=== PATIENT | male | born 1955 | race Caucasian/White ===

== ENCOUNTER → 2017-12-16 09:27 | Outpatient (CLI) | payer OTHER, SELFPAY ==
[2017-12-16 12:50] LABS: AST(SGOT) 43 U/L (15-37); Alanine Aminotransfer ALT/SGPT 51 U/L (16-61); Anion Gap 8 (5-15); BUN 11 mg/dL (7-18); BUN/Creat Ratio 10.1 RATIO (10-20); Calcium,Total 8.8 mg/dL (8.5-10.1); Chloride 104 mmol/L (98-107); Cholesterol 191 mg/dL (200); Creatinine, Serum 1.09 mg/dL (0.70-1.30); EST Glomerular Filtration Rate 73 mL/min (>60); Est Glom Filt Rate - Afr Amer 89 mL/min (>60); Glucose 101 mg/dL (74-106); High Density Lipoprotein 78 mg/dL; Sodium Level 136 mmol/L (136-145); Triglycerides 201 mg/dL; Very Low Density Lipoprotein 40 mg/dL (5-40)
== END ==
PROVIDERS: Family Provider Family Medicine; PCP Family Medicine; Visit Provider Family Medicine
DX: I10 Essential (primary) hypertension (principal); E78.00 Pure hypercholesterolemia, unspecified
CPT/HCPCS: 36415; 80048; 80061; 84450; 84460

== ENCOUNTER → 2018-01-15 16:03 | Outpatient (CLI) | payer OTHER, SELFPAY ==
--- NOTE | 2018-01-15 16:09 | RAD_ITS ---
STUDY: X-RAY - LUMBAR SPINE REASON FOR EXAM: Male, 62 years old. Strain. TECHNIQUE: 5 view(s) of the lumbar spine were obtained. COMPARISON: None FINDINGS: Normal lumbar lordosis. Minimal levoconvex scoliosis. There is a normal alignment of the vertebrae. There is multilevel endplate spondylosis of the lumbar vertebrae. There is multi-level degenerative disc disease with multi-level disc space narrowing. There is no demonstrated fracture. The soft tissue structures are unremarkable. RAD/L/S Spine Min 4 Views IMPRESSION: No acute abnormality. Psva-fq-tnnovuel multilevel degenerative changes. Electronically Signed: Pawel Trujillo MD at 0:01 EST , Service support ,
== END ==
PROVIDERS: Family Provider Family Medicine; PCP Family Medicine; Referring Provider Family Medicine; Visit Provider Family Medicine
DX: S76.019A Strain of muscle, fascia and tendon of unspecified hip, initial encounter (principal); X58.XXXA Exposure to other specified factors, initial encounter; Y93.9 Activity, unspecified; Y92.9 Unspecified place or not applicable; Y99.9 Unspecified external cause status
CPT/HCPCS: 72110

== ENCOUNTER 2018-02-23 09:00 | Outpatient (RCR) | payer OTHER, SELFPAY ==
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
--- NOTE | 2018-02-23 09:47 | HP.PTDCSUM ---
HP - PT D/C Summary It has been my pleasure to treat CLARA PENA under orders from Vera Hurst MD, for the diagnosis of GLUTEUS STRAIN for a total of 11 visit(s). Discharge Date: 02/23/18 Please see the following information for a summary of their discharge status. - Subjective Subjective: PATIENT DENIES PAIN, NUMBNESS OR TINGLING. REPORTS HE REALLY HASN'T BEEN FEELING MUCH. STATES HE HAS BEEN DOING HIS HOME EX'S AND FEELS READY TO STOP COMING. - Pain LEFT LOW BACK Pain Intensity (Out of 10): 0 - Overall Improvement % Improvement: 97 - Objective Objective/Function: ALL GOALS MET. PATIENT IS READY FOR DISCHARGE SOONER THAN EXPECTED. WHEN HE FIRST CAME, HE COULD NOT TOLERATED SITTING NORMALLY EVEN FOR A FEW MINUTES, STANDING MORE THAN A FEW MINUTES OR WALKING MORE THAN A FEW MINUTES. SITTING, STANDING AND WALKING ARE NOW UNLIMITED BUT HE HE DOES STILL REPORT MINOR SX'S AT TIMES. UPON EXAM TODAY HE AMBULATES INDEP'LY INTO PT WITH NO GROSS DEVICATIONS NOTED. JOYCE LE STRENGTH AND ROM ARE WFL AND TESTING DOES NOT PROVOKE PAIN. JOYCE LE DURAL SIGNS ARE NEGATIVE. LUMBAR MVMT LOSS: FLEX - NIL, EXT - MIN, JOYCE SG - MIN. PATIENT DENIES SX'S WITH LUMBAR ROM TESTING ALL PLANES. HE IS INDEP WITH A HEP. LUMBAR OSWESTRY HAS IMPROVED FROM 16 TO 0. - Goals Goal 1:: DECREASE C/O LEFT LOW BACK PAIN Goal Progress: Goal Met Goal 2:: IMPROVE STANDING, WALKING AND WORK FUNCTION Goal Progress: Goal Met Goal 3:: INSTRUCT IN PROPHYLAXIS Goal Progress: Goal Met - Plan Plan: D/C TO HEP. PATIENT AGREEABLE. - D/C Information If there are questions or concerns regarding this patient's physical therapy, please feel free to call me at [phone]. Thank you for the referral of this patient. Sincerely, Ekta Rosa, PT, Cert MDT
== END 2018-02-23 19:00 | disposition home or self-care (01) ==
LOC: PT 09:00
PROVIDERS: Family Provider Family Medicine; PCP Family Medicine; Referring Provider Family Medicine; Visit Provider Family Medicine
DX: S76.319D Strain of muscle, fascia and tendon of the posterior muscle group at thigh level, unspecified thigh, subsequent encounter (principal)
CPT/HCPCS: 97014; 97035; 97110; 97140; 97162; 97530; G0283

== ENCOUNTER → 2018-12-15 09:43 | Outpatient (CLI) | payer OTHER, SELFPAY ==
[2018-12-15 12:53] LABS: AST(SGOT) 51 U/L (15-37); Alanine Aminotransfer ALT/SGPT 62 U/L (16-61); Anion Gap 11 (5-15); BUN 11 mg/dL (7-18); BUN/Creat Ratio 9.8 RATIO (10-20); Calcium,Total 8.8 mg/dL (8.5-10.1); Chloride 103 mmol/L (98-107); Cholesterol 180 mg/dL (200); Creatinine, Serum 1.12 mg/dL (0.70-1.30); EST Glomerular Filtration Rate 71 mL/min (>60); Est Glom Filt Rate - Afr Amer 86 mL/min (>60); Glucose 98 mg/dL (74-106); High Density Lipoprotein 73 mg/dL; Potassium 4.5 mmol/L (3.5-5.1); Sodium Level 140 mmol/L (136-145); Triglycerides 237 mg/dL; Very Low Density Lipoprotein 47 mg/dL (5-40)
== END ==
PROVIDERS: Family Provider Family Medicine; PCP Family Medicine; Referring Provider Family Medicine; Visit Provider Family Medicine
DX: I10 Essential (primary) hypertension (principal); E78.00 Pure hypercholesterolemia, unspecified
CPT/HCPCS: 36415; 80048; 80061; 84450; 84460

== ENCOUNTER 2019-07-25 05:28 | Day surgery (SDC) | payer OTHER, SELFPAY ==
[2019-07-14 07:41] VITALS: BMI 23.6
--- NOTE | 2019-07-14 07:57 | HP_ITS ---
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 Óscar Avalos MD) Gastroesophageal reflux disease (Acute) GERD (gastroesophageal reflux disease) (Acute) Hyperlipidemia (Acute) HTN (hypertension) (Chronic) Surgical History (Updated 07/14/19 @ 07:40 by Dianna Solis) History of arthroscopic knee surgery (Acute) History of esophagogastroduodenoscopy (EGD) (Acute) History of mandibular surgery (Acute) Family History (Updated 07/14/19 @ 07:40 by Dianna Solis) Grandfather Myocardial infarction Heart disease Grandmother Cancer lung Social History (Updated 07/14/19 @ 07:[address] Óscar Avalos MD) Smoking Status: Never smoker HPI HPI HPI: CLARA PENA, is a 63 M who presents to the office today for HPI HPI Surgical H&P: Yes HPI: CLARA PENA, is a 63 M who presents to the office today for surgical consultation regarding a positive Cologuard test. The patient is referred by his primary care is Dr. Vera Hurst and a written copy my surgical consult recommendations will return to her. It is of additional note that the patient has been on a proton pump inhibitor omeprazole for over 10 years. He has not had any updated investigation regarding that currently. He denies bright red blood per rectum or melena. No abdominal pain. No weight loss. He otherwise feels like he is in good health. Does have hyperlipidemia and hypertension. ROS General General: No weight change, appetite, fatigue, colon cancer, breast cancer or weakness HEENT HEENT: No difficulty swallowing, eye injury, eye surgery, swollen glands or hoarseness Endo Endocrine: No thyroid disease, diabetes mellitus, thyroid cancer, Hair loss, heat intolerance or cold intolerance Musc Musculoskeletal: Yes arthritis; no back problems, rheumatoid arthritis, gout or joint pain Cardio Cardiovascular: Yes high blood pressure; no murmur, pacemaker, heart disease, atrial fibrillation, heart attack, heart stent, palpitations, shortness of breat with exertion or chest pain Psych Psychiatric: No depression, anxiety or hearing voices Resp Respiratory: No shortness of breath, No sleep apnea, No cough, No COPD, No asthma, No emphysema, No wheezing Gastro Gastrointestinal: No abdominal pain, No nausea or vomiting, No diarrhea, No constipation, No blood in stool, Yes acid reflux, No hemorrhoids, No ulcers, No gallbladder problem, No black,tarry stools Cesar Hematologic: No blood thinners, No blood disorders, No bleeding, No anemia, No blood clots Neuro Neurologic: No weakness Exam Const General: cooperative, healthy appearing, no acute distress, well developed Nutritional Appearance: average body habitus Orientation: alert, awake [facility] Head: normal to inspection Eyes General: appearance normal, both eyes and all related structures Neck Neck: normal visual inspection Chest Chest palpation & inspection: normal inspection of the chest Resp Effort & Inspection: normal respiratory effort Auscultation: clear to auscultation bilaterally Cardio Rate: regular rate Rhythm: regular rhythm Heart Sounds: no murmurs GI Palpation: soft, no hepatosplenomegaly Auscultation: normal bowel sounds Musc Cervical Spine: normal cervical lordosis Skin General: no rashes or lesions noted Neuro Cognition: normal cognition Extrem General: calf tenderness Psych Affect: normal affect Assessment & Plan Problems 1. Positive colorectal cancer screening using Cologuard test R19.5 2. Gastroesophageal reflux disease, esophagitis presence not specified K21.9 Plan Positive Cologuard with no previous history of colonoscopy. No family history. I recommend a colonoscopy with possible biopsy or polypectomy as indicated. The patient has been on long-term proton pump inhibitor therapy omeprazole for 10 years for treatment of GERD. I recommend a esophagogastroduodenoscopy with possible biopsy or polypectomy as indicated. He has had an opportunity to ask and have questions answered. He is aware that restrictions are elective procedures have just been lifted in the state of [place] regarding the Covid-19 pandemic. We will schedule and proceed at his discretion. I anticipate using monitored anesthesia care at this time.. I appreciate the opportunity of assisting with surgical care Cc: Dr. Vera Avalos M.D., F.A.C.S. Orders Orders: Colonoscopy Today Coding Level of Care Code 90621 Diagnoses Positive colorectal cancer screening using Cologuard test R19.5 Gastroesophageal reflux disease, esophagitis presence not specified K21.9 ??Esophagitis presence: esophagitis presence not specified 07/14/19 0758 <Electronically signed by Óscar raygoza MD> Date _ Óscar Avlaos MD
--- NOTE | 2019-07-25 05:42 | PCM.HP.BLA ---
Problem List (1) Gastroesophageal reflux disease Status: Acute Qualifiers: (2) Positive colorectal cancer screening using Cologuard test Status: Acute History and Physical Date of Admission: 07/25/19 Intake Visit Reasons: C-Scope Consult/+ Cologuard Chief Complaint: positive cologuard Alterations Sewer Required: No Is patient in pain?: No Allergies No Known Allergies Allergy (Verified 07/14/19 07:41) Medications amlodipine 10 mg tablet PO 07/14/19 [History Confirmed 07/14/19] atorvastatin 20 mg tablet PO 07/14/19 [History Confirmed 07/14/19] lansoprazole 30 mg capsule,delayed release ea PO 07/14/19 [History Confirmed 07/14/19] lisinopril 20 mg tablet PO 07/14/19 [History Confirmed 07/14/19] [facility] Medical History (Updated 07/14/19 @ 07:[address] Óscar Avalos MD) Gastroesophageal reflux disease (Acute) GERD (gastroesophageal reflux disease) (Acute) Hyperlipidemia (Acute) HTN (hypertension) (Chronic) Surgical History (Updated 07/14/19 @ 07:40 by Dianna Solis) History of arthroscopic knee surgery (Acute) History of esophagogastroduodenoscopy (EGD) (Acute) History of mandibular surgery (Acute) Family History (Updated 07/14/19 @ 07:40 by Dianna Solis) Grandfather Myocardial infarction Heart disease Grandmother Cancer lung Social History (Updated 07/14/19 @ 07:[address] Óscar Avalos MD) Smoking Status: Never smoker HPI HPI HPI: CLARA PENA, is a 63 M who presents to the office today for HPI HPI Surgical H&P: Yes HPI: CLARA PENA, is a 63 M who presents to the office today for surgical consultation regarding a positive Cologuard test. The patient is referred by his primary care is Dr. Vera Hurst and a written copy my surgical consult recommendations will return to her. It is of additional note that the patient has been on a proton pump inhibitor omeprazole for over 10 years. He has not had any updated investigation regarding that currently. He denies bright red blood per rectum or melena. No abdominal pain. No weight loss. He otherwise feels like he is in good health. Does have hyperlipidemia and hypertension. ROS General General: No weight change, appetite, fatigue, colon cancer, breast cancer or weakness HEENT HEENT: No difficulty swallowing, eye injury, eye surgery, swollen glands or hoarseness Endo Endocrine: No thyroid disease, diabetes mellitus, thyroid cancer, Hair loss, heat intolerance or cold intolerance Musc Musculoskeletal: Yes arthritis; no back problems, rheumatoid arthritis, gout or joint pain Cardio Cardiovascular: Yes high blood pressure; no murmur, pacemaker, heart disease, atrial fibrillation, heart attack, heart stent, palpitations, shortness of breat with exertion or chest pain Psych Psychiatric: No depression, anxiety or hearing voices Resp Respiratory: No shortness of breath, No sleep apnea, No cough, No COPD, No asthma, No emphysema, No wheezing Gastro Gastrointestinal: No abdominal pain, No nausea or vomiting, No diarrhea, No constipation, No blood in stool, Yes acid reflux, No hemorrhoids, No ulcers, No gallbladder problem, No black,tarry stools Cesar Hematologic: No blood thinners, No blood disorders, No bleeding, No anemia, No blood clots Neuro Neurologic: No weakness Exam Const General: cooperative, healthy appearing, no acute distress, well developed Nutritional Appearance: average body habitus Orientation: alert, awake [facility] Head: normal to inspection Eyes General: appearance normal, both eyes and all related structures Neck Neck: normal visual inspection Chest Chest palpation & inspection: normal inspection of the chest Resp Effort & Inspection: normal respiratory effort Auscultation: clear to auscultation bilaterally Cardio Rate: regular rate Rhythm: regular rhythm Heart Sounds: no murmurs GI Palpation: soft, no hepatosplenomegaly Auscultation: normal bowel sounds Musc Cervical Spine: normal cervical lordosis Skin General: no rashes or lesions noted Neuro Cognition: normal cognition Extrem General: calf tenderness Psych Affect: normal affect Assessment & Plan Problems 1. Positive colorectal cancer screening using Cologuard test R19.5 2. Gastroesophageal reflux disease, esophagitis presence not specified K21.9 Plan Positive Cologuard with no previous history of colonoscopy. No family history. I recommend a colonoscopy with possible biopsy or polypectomy as indicated. The patient has been on long-term proton pump inhibitor therapy omeprazole for 10 years for treatment of GERD. I recommend a esophagogastroduodenoscopy with possible biopsy or polypectomy as indicated. He has had an opportunity to ask and have questions answered. He is aware that restrictions are elective procedures have just been lifted in the state [facility] regarding the Covid-19 pandemic. We will schedule and proceed at his discretion. I anticipate using monitored anesthesia care at this time.. He is aware that [facility] administration has suggested a low incidence of coronavirus locally I appreciate the opportunity of assisting with surgical care Cc: Dr. Vera Avalos M.D., F.A.C.S. Orders Orders: Colonoscopy Today Coding Level of Care Code 86091 Diagnoses Positive colorectal cancer screening using Cologuard test R19.5 Gastroesophageal reflux disease, esophagitis presence not specified K21.9 ??Esophagitis presence: esophagitis presence not specified I have re-examined the patient. There are no clinical changes since date of exam.
[2019-07-25 05:50] VITALS: BP 111/80; PULSE 99; RESP 16; TEMP 37.2; O2SAT 95; BMI 22.4
[2019-07-25] MEDS: Lactated Ringers 1,000 ML 100 ML IV (06:07)
--- NOTE | 2019-07-25 06:30 | EGD_PTH ---
PATIENT: CLARA PENA LOC: EN U#:[id number] AGE/SX: 63/M ROOM: RE07/25/[address]: Dr. Óscar Avalos MD : 1955 BED: DIS: 07/25/2019 SPEC #: [id number] RECD: 07/25/19 13:30 STATUS: ARIS KENY #: [id number] DEANDRA: 07/25/19 06:[address]: Óscar Avalos DEPT: SURGICAL PATHOLOGY RECD BY: Nima Garcai ENTERED: 07/26/19 09:22 SP TYPE: EGD BIOPSY OT DR: Dr. Vera Hurst MD Tissues: A - Gastric mucous membrane B - Gastric mucous membrane C - Stomach, NOS D - Stomach, NOS E - Gastric mucous membrane Procedures: Special Stain Group II Surgery Specimen Level IV Alcian Blue/PAS (control) HEADER OPERATION: Colonoscopy, EGD ([facility]) PRE-OP DIAGNOSIS: GERD, positive Cologuard test TISSUE SUBMITTED: A - Antrum biopsy for histo and H. pylori, B - Antrum polyp biopsy, C - Lesser curvature polyp, D - Proximal cardia polyp, E - EG junction distal esophagus biopsy MICROSCOPIC DIAGNOSIS A. Antrum biopsy: Mild gastritis. See microscopic description and comment. B. Antrum polyp, biopsy: Hyperplastic/inflammatory polyp. C. Lesser curvature polyp, biopsy: Fragments of hyperplastic/inflammatory polyp. D. Proximal cardia polyp, biopsy: Fragments of hyperplastic/inflammatory polyp with focal ulceration and associated inflammation. E. EG junction, distal esophagus, biopsy: Fragments of gastroesophageal mucosa with focal intestinal metaplasia (goblet cell metaplasia), consistent with [place]'s esophagus. Moderate chronic inflammation. Negative for dysplasia. See comment. SJ:galileo 07/27/19 COMMENT A. The results of immunohistochemistry for Helicobacter pylori will be reported separately ([id number]). E. Alcian blue/PAS stain with matched control is used in the evaluation of the specimen. Case has been reviewed in consultation with Dr. Mendoza who concurs with the above diagnosis. IDC:AM MICROSCOPIC DESCRIPTION Slides are reviewed. A. The specimen shows fragments of gastric mucosa with chronic inflammatory cell infiltrates in the lamina propria consisting of lymphocytes and plasma cells, consistent with mild chronic gastritis. GROSS DESCRIPTION A - Received in fixative is one container labeled with the patient's name and designated antrum biopsy. The specimen consists of one irregular fragment of light bahena soft tissue that measures 0.3 x 0.3 x 0.1 cm. The specimen is totally submitted in one cassette. B - Received in fixative is one container labeled with the patient's name and designated antrum polyp biopsy. The specimen consists of one irregular fragment of light bahena soft tissue that measures 0.4 x 0.3 x 0.1 cm. The specimen is totally submitted in one cassette. C - Received in fixative is one container labeled with the patient's name and designated lesser curvature polyp. The specimen consists of two irregular fragments of light bahena soft tissue measuring 1 x 1 x 0.3 cm and 0.3 x 0.1 x 0.1 cm. The specimen is totally submitted in one cassette. D - Received in fixative is one container labeled with the patient's name and designated proximal cardia polyp. The specimen consists of two polypoid fragments of bahena-pink soft tissue measuring 2 x 1 x 1.2 and 1.5 x 1 x 0.1 cm. Also present in the container are multiple fragments of bahena-soft tissue measuring in aggregate 1.5 x 0.5 x 0.2 cm. The two pieces are serially sectioned. The entire specimen is submitted in three cassettes as follows: 1 - largest polypoid piece, 2 - second largest polypoid piece, 3 - smaller fragment. E - Received in fixative is one container labeled with the patient's name and designated EG junction. The specimen consists of multiple irregular fragments of light bahena soft tissue that in aggregate measure 2 x 0.3 x 0.1 cm. The specimen is totally submitted in one cassette. / SJ:rg 06/26/19 TC:[address] [facility]: [id number] x5, [id number]
--- NOTE | 2019-07-25 06:30 | IMM_PTH ---
PATIENT: CLARA PENA LOC: EN U#:[id number] AGE/SX: 63/M ROOM: RE07/25/[address]: Dr. Óscar Avalos MD : 1955 BED: DIS: 07/25/2019 SPEC #: [id number] RECD: 07/26/19 11:15 STATUS: ARIS REQ #: [id number] DEANDRA: 07/25/19 06:[address]: Óscar Avalos DEPT: IMMUNOHISTOCHEMISTRY RECD BY: Shirlene Berrios ENTERED: 07/26/19 11:16 SP TYPE: IMMUNO OTHR DR: Dr. Vera Hurst MD Tissues: A - Stomach, NOS Procedures: H Pylori (initial) PHYSICIAN & INSTITUTION [place] [address] SPECIMEN INFORMATION: Tissue Source: A - Antrum biopsy Clinical Info: GERD, positive Cologuard test Specimen Number: [id number] CPT code: 60355 METHODOLOGY: Deparaffinized sections of prefer/formalin-fixed tissue or PAP/DQ stained slides are incubated with monoclonal/polyclonal antibodies/oligonucleotide probes. Localization is made via biotin free immunoperoxidase method. Appropriate controls are performed and reacted as expected. Results on target cell population are indicated in the following table: RESULTS: ANTIBODY / CLONE RESULT Block A H Pylori (polyclonal) negative These tests were developed and their performance characteristics determined by [facility]. They may not have been cleared or approved by the U.S. Food and Drug Administration. The FDA has determined that such clearance or approval is not necessary. INTERPRETATION: A. Antrum, biopsy: Negative for Helicobacter pylori organisms. SJ:galileo 07/27/19
[2019-07-25 07:28] VITALS: BP 111/80; BP 122/77; PULSE 72; RESP 14; TEMP 36.3; O2SAT 100
[2019-07-25 07:35] VITALS: BP 111/80; BP 123/72; PULSE 69; RESP 14; O2SAT 100
--- NOTE | 2019-07-25 07:37 | OP.CCLET_ITS ---
07/25/2019 Vera Hurst [address] [place] [address] Re : Upper GI endoscopy procedure for Travis Scruggs Dear Dr. Hurst This procedure was performed on Thursday, July 25, 2019. My impressions and recommendations are as follows: Impressions : - Medium-sized hiatal hernia. - Z-line irregular, 42 cm from the incisors. Biopsied. - Esophageal mucosal changes suspicious for Espana's esophagus. Biopsied. - Multiple gastric polyps. Resected and retrieved. Lesser curvature polyps snare resected and retrieved - Two gastric polyps at cardia. Resected and retrieved. Clips were placed. - Normal examined duodenum. - Erythematous mucosa in the antrum. Biopsied. Recommendations : - Discharge patient to home. - Resume previous diet. - Continue present medications. - Return to my office in 1 week. My findings are described in the full procedure note, which is enclosed. If I can be of further assistance, please feel free to contact me at Doctor phone number(s): Work: . Sincerely, Óscar Avalos MD 07/25/2019 7:36:58 AM This report has been signed electronically.
--- NOTE | 2019-07-25 07:37 | OP.EGD_ITS ---
Patient Name: Travis Scruggs Procedure Date: 07/25/2019 6:09 AM Date of : 1955 Age: 63 Procedure: Upper GI endoscopy Indications: Cologuard positive Providers: Óscar Avalos MD Referring MD: Vera Hurst Medicines: See the Anesthesia note for documentation of the administered medications Complications: No immediate complications. Procedure: Pre-Anesthesia Assessment: - Prior to the procedure, a History and Physical was performed, and patient medications and allergies were reviewed. The patient's tolerance of previous anesthesia was also reviewed. The risks and benefits of the procedure and the sedation options and risks were discussed with the patient. All questions were answered, and informed consent was obtained. Prior Anticoagulants: The patient has taken no previous anticoagulant or antiplatelet agents. ASA Grade Assessment: II - A patient with mild systemic disease. After reviewing the risks and benefits, the patient was deemed in satisfactory condition to undergo the procedure. After obtaining informed consent, the endoscope was passed under direct vision. Throughout the procedure, the patient's blood pressure, pulse, and oxygen saturations were monitored continuously. The gastroscope was introduced through the mouth, and advanced to the second part of duodenum. The upper GI endoscopy was performed with moderate difficulty due to abnormal anatomy. The patient tolerated the procedure well. Scope In: 6:38:40 AM Scope Out: 7:03:25 AM Total Procedure Duration Time 0 hours 24 minutes 45 seconds Findings: A medium-sized hiatal hernia was present. The Z-line was irregular and was found 42 cm from the incisors. Biopsies were taken with a cold forceps for histology. There were esophageal mucosal changes suspicious for Espana's esophagus present at the gastroesophageal junction. The maximum longitudinal extent of these mucosal changes was 1 cm in length. Mucosa was biopsied with a cold forceps for histology. Multiple sessile polyps with no bleeding and no stigmata of recent bleeding were found in the stomach. The polyp was removed with a cold biopsy forceps. Resection and retrieval were complete. Lesser curvature pedunculated polyp, snare resected and retrieved Two 12 mm pedunculated and sessile polyps with no bleeding and stigmata of recent bleeding were found in the cardia. The polyp was removed with a hot snare. Resection and retrieval were complete. To prevent bleeding post-intervention, two hemostatic clips were successfully placed. There was no bleeding at the end of the procedure. The examined duodenum was normal. Diffuse mildly erythematous mucosa without bleeding was found in the gastric antrum. Biopsies were taken with a cold forceps for histology. Impression: - Medium-sized hiatal hernia. - Z-line irregular, 42 cm from the incisors. Biopsied. - Esophageal mucosal changes suspicious for Espana's esophagus. Biopsied. - Multiple gastric polyps. Resected and retrieved. Lesser curvature polyps snare resected and retrieved - Two gastric polyps at cardia. Resected and retrieved. Clips were placed. - Normal examined duodenum. - Erythematous mucosa in the antrum. Biopsied. Recommendation: - Discharge patient to home. - Resume previous diet. - Continue present medications. - Return to my office in 1 week. Procedure Code(s): --- Professional --- 39984, Esophagogastroduodenoscopy, flexible, transoral; with removal of tumor(s), polyp(s), or other lesion(s) by snare technique 72772, 59, Esophagogastroduodenoscopy, flexible, transoral; with biopsy, single or multiple Diagnosis Code(s): --- Professional --- K44.9, Diaphragmatic hernia without obstruction or gangrene K22.8, Other specified diseases of esophagus K31.7, Polyp of stomach and duodenum K31.89, Other diseases of stomach and duodenum CPT copyright 2017 [employer]. All rights reserved. The codes documented in this report are preliminary and upon informatics nurse review may be revised to meet current compliance requirements. Óscar Avalos MD 07/25/2019 7:36:58 AM This report has been signed electronically. Number of Addenda: 0 Note Initiated On: 07/25/2019 6:09 AM
--- NOTE | 2019-07-25 07:39 | OP.CCLET_ITS ---
07/25/2019 Vera Hurst [address] [place] [address] Re : Colonoscopy procedure for Travis Scruggs Dear Dr. Hurst This procedure was performed on Thursday, July 25, 2019. My impressions and recommendations are as follows: Impressions : - Non-thrombosed external hemorrhoids, non-thrombosed internal hemorrhoids and internal hemorrhoids that prolapse with straining, but spontaneously regress to the resting position (Grade II) found on digital rectal exam. - Tortuous colon. - The examination was otherwise normal. - No specimens collected. Recommendations : - Discharge patient to home. - Resume previous diet. - Continue present medications. - Repeat colonoscopy in 10 years for screening purposes. My findings are described in the full procedure note, which is enclosed. If I can be of further assistance, please feel free to contact me at Doctor phone number(s): Work: . Sincerely, Óscar Avalos MD 07/25/2019 7:39:15 AM This report has been signed electronically.
--- NOTE | 2019-07-25 07:39 | OP.COLON_ITS ---
Patient Name: Travis Scruggs Procedure Date: 07/25/2019 7:05 AM Date of : 1955 Age: 63 Procedure: Colonoscopy Indications: Cologuard positive Providers: Óscar Avalos MD Referring MD: Vera Hurst Medicines: See the Anesthesia note for documentation of the administered medications Patient Profile: Last Colonoscopy: none. The patient's first colonoscopy is today. Complications: No immediate complications. Procedure: Pre-Anesthesia Assessment: - Prior to the procedure, a History and Physical was performed, and patient medications and allergies were reviewed. The patient's tolerance of previous anesthesia was also reviewed. The risks and benefits of the procedure and the sedation options and risks were discussed with the patient. All questions were answered, and informed consent was obtained. Prior Anticoagulants: The patient has taken no previous anticoagulant or antiplatelet agents. ASA Grade Assessment: II - A patient with mild systemic disease. After reviewing the risks and benefits, the patient was deemed in satisfactory condition to undergo the procedure. After I obtained informed consent, the scope was passed under direct vision. Throughout the procedure, the patient's blood pressure, pulse, and oxygen saturations were monitored continuously. The pediatric colonoscope was introduced through the anus and advanced to the cecum, identified by appendiceal orifice and ileocecal valve. The colonoscopy was performed with moderate difficulty due to a tortuous colon. Successful completion of the procedure was aided by applying abdominal pressure. The patient tolerated the procedure well. The quality of the bowel preparation was good. Scope In: 7:06:50 AM Scope Withdrawal Time 0 hours 6 minutes 23 seconds Scope Out: 7:23:45 AM Total Procedure Duration Time 0 hours 16 minutes 55 seconds Findings: The digital rectal exam findings include non-thrombosed external hemorrhoids, non-thrombosed internal hemorrhoids and internal hemorrhoids that prolapse with straining, but spontaneously regress to the resting position (Grade II). The colon (entire examined portion) was moderately tortuous. Advancing the scope required using manual pressure. The exam was otherwise without abnormality. Impression: - Non-thrombosed external hemorrhoids, non-thrombosed internal hemorrhoids and internal hemorrhoids that prolapse with straining, but spontaneously regress to the resting position (Grade II) found on digital rectal exam. - Tortuous colon. - The examination was otherwise normal. - No specimens collected. Recommendation: - Discharge patient to home. - Resume previous diet. - Continue present medications. - Repeat colonoscopy in 10 years for screening purposes. Procedure Code(s): --- Professional --- 25597, Colonoscopy, flexible; diagnostic, including collection of specimen(s) by brushing or washing, when performed (separate procedure) Diagnosis Code(s): --- Professional --- K64.1, Second degree hemorrhoids K64.4, Residual hemorrhoidal skin tags Q43.8, Other specified congenital malformations of intestine CPT copyright 2017 [employer]. All rights reserved. The codes documented in this report are preliminary and upon grocery associate review may be revised to meet current compliance requirements. Óscar Avalos MD 07/25/2019 7:39:15 AM This report has been signed electronically. Number of Addenda: 0 Note Initiated On: 07/25/2019 7:05 AM
[2019-07-25 07:40] VITALS: BP 111/80; BP 120/75; PULSE 74; RESP 16; O2SAT 100
[2019-07-25 07:45] VITALS: BP 111/80; BP 133/77; PULSE 77; RESP 16; TEMP 36.9; O2SAT 100
[2019-07-25 08:10] VITALS: BP 111/80
== END 2019-07-25 08:14 | disposition home or self-care (01) ==
LOC: EN 05:30 → AC 05:30
PROVIDERS: PCP Family Medicine; Referring Provider Family Medicine; Visit Provider Surgery
PROC: 0DJD8ZZ Inspection of Lower Intestinal Tract, Via Natural or Artificial Opening Endoscopic (ICD-10-PCS; CPT 45378; principal; 2019-07-25 06:25)
DX: K21.0 Gastro-esophageal reflux disease with esophagitis (principal); K44.9 Diaphragmatic hernia without obstruction or gangrene; K31.7 Polyp of stomach and duodenum; K22.8 Other specified diseases of esophagus; Q43.8 Other specified congenital malformations of intestine; K64.1 Second degree hemorrhoids; K64.4 Residual hemorrhoidal skin tags; R19.5 Other fecal abnormalities; I10 Essential (primary) hypertension; E78.5 Hyperlipidemia, unspecified; M19.90 Unspecified osteoarthritis, unspecified site; Z11.59 Encounter for screening for other viral diseases
CPT/HCPCS: 43239; 43251; 45378; 87635; 88305; 88313; 88342; G2023; J7120; J2405; U0002

== ENCOUNTER 2019-10-26 19:11 | Emergency (ER) | payer OTHER, SELFPAY ==
[2019-08-03 13:45] VITALS: BMI 22.4
[2019-10-26 19:11] VITALS: BP 148/66; PULSE 123; RESP 18; TEMP 36.5; O2SAT 97; BMI 22.9
--- NOTE | 2019-10-26 19:40 | RAD_ITS ---
STUDY: X-RAY - LEFT HAND REASON FOR EXAM: Male, 64 years old. Cut left thumb on log splitter TECHNIQUE: 1 view(s) of the hand. COMPARISON: 02/09/2017 FINDINGS: There is joint space narrowing of the radiocarpal articulation consistent with degenerative arthrosis. Normal distal radioulnar joint. Normal visualized carpal bones. Normal carpal articulations Normal carpometacarpal articulation of the thumb. Normal second through fifth carpometacarpal joints. Normal metacarpi. There is degenerative arthrosis of the metacarpophalangeal (MCP) joints. There is amputation of the first distal phalanx at the interphalangeal joint of the thumb. Normal metacarpophalangeal joints of the second through fifth fingers. There is diffuse articular joint space narrowing of the proximal and distal interphalangeal joints of the second through fifth fingers, but without erosive changes or periarticular soft tissue swelling. Normal phalanges of the second through fifth fingers. The soft tissue structures are unremarkable. RAD/Hand Min 3 Views IMPRESSION: Amputation of the first distal phalanx at the interphalangeal joint. Degenerative changes. Electronically Signed: Giselle Treadwell MD at 19:57 EDT Tel , Service support ,
--- NOTE | 2019-10-26 20:05 | ED.VIS.GEN ---
History of Present Illness Chief Complaint: Laceration Informant: Patient Narrative: Patient is a 64-year-old male who presents to the emergency department for amputation of his left thumb. He was using a log splitter whenever his hand got caught in it. He does have the thumb tip with him. He denies any other injury. Not on any anticoagulation. Just has a history of hypertension. Bleeding has been controlled prior to arrival in the ED. This occurred at 7 PM today. Past Medical History - Allergies and Home Meds Allergies/Adverse Reactions: Allergies hay fever Allergy (Uncoded 10/26/19 19:15) NEEDS FOLLOW-UP sneezing Primary Care Physician: Vera Hurst MD [Primary Care Provider] - Prior records reviewed: Yes Past Medical History: - - Hypertension Smoking Status: Never smoker Review of Systems All systems negative except as indicated General: Denies: Chills, Fever Eyes: Denies: Visual changes - bilaterally Cardiovascular: Denies: Chest pain Respiratory: Denies: Dyspnea Gastrointestinal: Denies: Abdominal pain, Nausea, Vomiting Musculoskeletal: Reports: Extremity Pain. Denies: Neck pain, Back pain Skin: Reports: Wounds Neurological: Denies: Headache Hematologic: Denies: Easy bruising, Easy bleeding Physical Exam Vital Signs/Narrative: Vital Signs Temp Pulse Resp BP Pulse Ox 10/26/19 19:11 97.7 F L 123 H 18 148/66 H 97 Inital Vital Signs reviewed: Yes General: Well nourished, Well developed, No Acute Distress Head: Normocephalic, Atraumatic Eyes: Perrl, EOMI ENT: Moist mucous membranes, No rhinorrhea Neck: Supple, Nontender Cardiovascular: Tachycardia - Borderline Respiratory: No distress, CTA bilaterally Abdomen: Soft, Nontender, Nondistended, Normal bowel sounds Back: Nontender, Normal Inspection Extremities: Nontender, No edema, - - Patient has amputation of the left thumb at the interphalangeal joint. No active bleeding. Bone is exposed. Skin: Normal color, No rash Neurological: Alert, Oriented x3, Normal Strength, Normal Sensation Psychological: Normal affect, Normal Mood Diagnostic/Tx/Re-eval - Medical Decision Making Patient presents to the ED for rheumatic amputation to the left thumb. Patient given a dose of Ancef. X-rays being obtained. I did attempt to contact [facility] as this was the patient's first preference. The surgeon did not accept the patient. The patient's next preference was the [facility] which they do not do re-plants. Patient currently declining anything for pain at this time. I did speak to the [facility] transfer line and Dr. Gonzales accepted the patient. Patient is refusing an ambulance up to the hospital and the is there to be able to drive him. She does feel comfortable with this plan. Will have them drive straight to the emergency department for further evaluation and management. The accepting hospital was informed of this change. He otherwise has been stable throughout ED stay. ED Disposition - Plan for ED Patient: Disposition: [facility] Diagnosis: Traumatic amputation of thumb Referrals: Vera Hurst MD [Primary Care Provider] -
[2019-10-26 20:27] VITALS: BP 138/79; PULSE 78; RESP 16; O2SAT 98
[2019-10-26 20:42] VITALS: BP 138/79; PULSE 78; RESP 16; TEMP 36.8; O2SAT 98
[2019-10-26] MEDS: Cefazolin 1 GM/5 ML Vial IM (21:10)
--- NOTE | 2019-10-26 21:25 | ED.RN ---
PT DEPARTED WITHOUT THE TRANSFER PACKET,
== END 2019-10-26 21:12 | disposition short-term general hospital (02) ==
PROVIDERS: Emergency Provider Emergency Medicine; PCP Family Medicine
DX: S68.522A Partial traumatic transphalangeal amputation of left thumb, initial encounter (principal); W27.8XXA Contact with other nonpowered hand tool, initial encounter; Y93.9 Activity, unspecified; Y92.9 Unspecified place or not applicable; Y99.9 Unspecified external cause status; I10 Essential (primary) hypertension; Z79.899 Other long term (current) drug therapy
CPT/HCPCS: 73130; 96372; 99282; A4216

== ENCOUNTER → 2019-12-20 09:47 | Outpatient (CLI) | payer OTHER, SELFPAY ==
[2019-12-20 13:08] LABS: AST(SGOT) 35 U/L (15-37); Alanine Aminotransfer ALT/SGPT 37 U/L (16-61); Anion Gap 8 (5-15); BUN 8 mg/dL (7-18); Calcium,Total 8.3 mg/dL (8.5-10.1); Chloride 103 mmol/L (98-107); Cholesterol 153 mg/dL (200); Creatinine, Serum 1.14 mg/dL (0.70-1.30); EST Glomerular Filtration Rate 69 mL/min (>60); Est Glom Filt Rate - Afr Amer 84 mL/min (>60); Glucose 110 mg/dL (74-106); High Density Lipoprotein 76 mg/dL; Potassium 3.9 mmol/L (3.5-5.1); Sodium Level 136 mmol/L (136-145); Triglycerides 162 mg/dL; Very Low Density Lipoprotein 32 mg/dL (5-40)
== END ==
PROVIDERS: PCP Family Medicine; Referring Provider Family Medicine; Visit Provider Family Medicine
DX: I10 Essential (primary) hypertension (principal); E87.5 Hyperkalemia
CPT/HCPCS: 36415; 80048; 80061; 84450; 84460

== ENCOUNTER 2020-05-24 12:07 | Outpatient (RCR) | payer OTHER, SELFPAY ==
[2020-05-24] MEDS: COVID-19 VACC, MRNA(PFIZER)/PF 30 MCG/0.3 ML SYRINGE IM (08:43)
[2020-06-14] MEDS: COVID-19 VACC, MRNA(PFIZER)/PF 30 MCG/0.3 ML SYRINGE IM (08:38)
== END 2020-05-24 23:59 ==
LOC: IMMUN 12:07
PROVIDERS: PCP Family Medicine; Visit Provider Family Medicine
DX: Z23 Encounter for immunization (principal)
CPT/HCPCS: 0001A; 0002A; 91300

== ENCOUNTER → 2020-12-21 09:41 | Outpatient (CLI) | payer OTHER, SELFPAY ==
[2020-12-21 12:25] LABS: AST(SGOT) 50 U/L (15-37); Alanine Aminotransfer ALT/SGPT 47 U/L (16-61); Anion Gap 10 (5-15); BUN 12 mg/dL (7-18); BUN/Creat Ratio 9.8 RATIO (10-20); Calcium,Total 9.1 mg/dL (8.5-10.1); Chloride 104 mmol/L (98-107); Cholesterol 177 mg/dL (200); Creatinine, Serum 1.23 mg/dL (0.70-1.30); EST Glomerular Filtration Rate 63 mL/min (>60); Est Glom Filt Rate - Afr Amer 76 mL/min (>60); Glucose 102 mg/dL (74-106); High Density Lipoprotein 66 mg/dL; Sodium Level 137 mmol/L (136-145); Triglycerides 272 mg/dL; Very Low Density Lipoprotein 54 mg/dL (5-40)
== END ==
PROVIDERS: PCP Family Medicine; Referring Provider Family Medicine; Visit Provider Family Medicine
DX: I10 Essential (primary) hypertension (principal); E78.00 Pure hypercholesterolemia, unspecified
CPT/HCPCS: 36415; 80048; 80061; 84450; 84460

== ENCOUNTER → 2021-12-25 | Outpatient (CLI) | payer OTHER, SELFPAY ==
[2021-12-25 12:41] LABS: AST(SGOT) 46 U/L (15-37); Alanine Aminotransfer ALT/SGPT 58 U/L (16-61); Anion Gap 9 (5-15); BUN 12 mg/dL (7-18); BUN/Creat Ratio 11.2 RATIO (10-20); Calcium,Total 8.9 mg/dL (8.5-10.1); Chloride 105 mmol/L (98-107); Cholesterol 163 mg/dL (200); Creatinine, Serum 1.07 mg/dL (0.70-1.30); EST Glomerular Filtration Rate 74 mL/min (>60); Est Glom Filt Rate - Afr Amer 89 mL/min (>60); Glucose 110 mg/dL (74-106); High Density Lipoprotein 67 mg/dL; PSA,Total - Annual Screen 1.06 ng/mL (0.00-4.00); Potassium 4.3 mmol/L (3.5-5.1); Sodium Level 137 mmol/L (136-145); Triglycerides 131 mg/dL; Very Low Density Lipoprotein 26 mg/dL (5-40)
[2021-12-25 13:28] LABS: Microalbumin,Random Urine 12.7 mg/L (NO RANGE EST.); Microalbumin:Creatinine Ratio 26.3 mg/g CRE (<30 mg/g CRE)
== END | disposition home or self-care (01) ==
LOC: MFPLAB 10:12
PROVIDERS: PCP Family Medicine; Referring Provider Family Medicine; Visit Provider Family Medicine
DX: Z00.00 Encounter for general adult medical examination without abnormal findings (principal); E78.00 Pure hypercholesterolemia, unspecified; I10 Essential (primary) hypertension
CPT/HCPCS: 36415; 80048; 80061; 82043; 82570; 84153; 84450; 84460; G0103

== ENCOUNTER 2022-07-22 08:20 | Day surgery (SDC) | payer OTHER, SELFPAY ==
[2022-07-22 08:42] VITALS: BP 142/83; PULSE 90; RESP 18; TEMP 36.7; O2SAT 97; BMI 22.7
--- NOTE | 2022-07-22 08:44 | HP.PCM_ITS ---
History and Physical Date of Admission: 07/22/22 Visit Reasons:?RECALL LETTER- EGD FOR BARRETTS Chief Complaint: recall letter-egd for barretts Is patient in pain?: No Allergies Environmental Allergies: Uncoded [seasonal] Allergy (Verified 07/03/22 08:04) Other Medications amlodipine 10 mg tablet 10 mg PO BID 07/14/19 [History Confirmed 07/03/22] atorvastatin 20 mg tablet 20 mg PO QHS 07/14/19 [History Confirmed 07/03/22] lansoprazole 30 mg capsule,delayed release 30 mg PO DAILY 07/14/19 [History Confirmed 07/03/22] famotidine 20 mg tablet (Pepcid) 20 mg PO BID #90 tabs 08/03/19 [Rx Confirmed 07/03/22] PFSH Medical History?(Updated 07/03/22 @ 08:[address] Óscar Avalos MD) Espana's esophagus determined by biopsy Gastritis Gastroesophageal reflux disease GERD (gastroesophageal reflux disease) Hiatal hernia with GERD HTN (hypertension) Hyperlipidemia Hyperplastic polyps of stomach Surgical History? History of arthroscopic knee surgery History of esophagogastroduodenoscopy (EGD) History of mandibular surgery Family History? Grandfather Myocardial infarction Heart diseaseGrandmother Cancer ?? ? lung Social History? Smoking Status:? Never smoker HPI HPI HPI: 66-year-old gentleman.? On July 25, 2019 I performed a esophagogastroduodenoscopy and colonoscopy for him.? The esophagogastroduodenoscopy demonstrated a medium size hiatal hernia with 2 polyps at the EG junction and additional polyp of the lesser curvatures.? All of these were hyperplastic inflammatory polyps.? There appeared to be esophageal mucosa 1 cm or less which was biopsied confirming Espana's esophagus with moderate chronic inflammation but no dysplasia.? Of additional note is that a tortuous colon was identified with hemorrhoids.? I did see him postoperatively discussing his long-term use at least 10 years of using a PPI I recommended home esophageal manometry with consideration of a surgical reflux procedure.? An attempt was made to convert him from proton pump inhibitor to famotidine.? Recommendations for follow-up of his Espana's esophagus with repeat EGD at 3 years. She did indeed try the famotidine but after a week it completely failed and he became quite symptomatic.? Therefore he returned to utilizing lansoprazole 30 mg daily.? That is completely effective at stopping his symptoms.? He does not have to use additional acid suppressing medication. He does not have his head of bed raised we did discuss that.? He is however of ideal body weight.? He does not use tobacco products. ROS General General: No weight change, appetite, fatigue, colon cancer, breast cancer or weakness HEENT HEENT: No difficulty swallowing, eye injury, eye surgery, swollen glands or hoarseness Endo Endocrine: No thyroid disease, diabetes mellitus, thyroid cancer, Hair loss, heat intolerance or cold intolerance Skin Skin: No rash or changing moles Musc Musculoskeletal: Yes arthritis; No back problems, rheumatoid arthritis, gout or joint pain Cardio Cardiovascular: Yes high blood pressure; No murmur, pacemaker, heart disease, atrial fibrillation, heart attack, heart stent, palpitations, shortness of breat with exertion or chest pain Psych Psychiatric: No depression, anxiety or hearing voices Resp Respiratory: No shortness of breath, No sleep apnea, No cough, No COPD, No asthma, No emphysema and No wheezing Gastro Gastrointestinal: No abdominal pain, No nausea or vomiting, No diarrhea, No constipation, No blood in stool, No acid reflux, No hemorrhoids, No ulcers, No gallbladder problem and No black,tarry stools Cesar Hematologic: No blood thinners, No blood disorders, No bleeding, No anemia and No blood clots Neuro Neurologic: No system reviewed and no additional complaints, except as documented, No as per HPI, No abnormal gait, No abnormal hearing, No abnormal movements, No abnormal speech, No behavioral changes, No burning sensations, No confusion, No convulsions, No disequilibrium, No dizziness, No localized weakness, No frequent falls, No headache(s), No lack of coordination, No loss of vision, No memory loss, Yes numbness, No other visual disturbances, No radicular pain, No restless legs, No sensory deficit, No syncope, No tingling, No tremor(s), No weakness and No other Exam Const General: cooperative, healthy appearing, comfortable and no acute distress [facility] Head: normal to inspection Eyes General: appearance normal, both eyes and all related structures Neck Neck: normal visual inspection Chest Chest palpation & inspection: normal inspection of the chest Resp Effort & Inspection: normal respiratory effort Auscultation: clear to auscultation bilaterally Cardio Rate: regular rate Rhythm: regular rhythm GI Inspection: normal to inspection Palpation: soft and no hepatosplenomegaly Other: Small reducible nontender umbilical hernia Skin General: no rashes or lesions noted Neuro General: patient alert, patient awake and patient oriented x3 Extrem General: no calf tenderness Psych Appearance: grossly normal Assessment and Plan Assessment and Plan (1) Espana's esophagus determined by biopsy: ?Status:?Acute ?Plan: Copy: Dr Vera Avalos M.D., F.A.C.S. (2) Umbilical hernia without obstruction or gangrene: ?Status:?Acute (3) Hyperplastic polyps of stomach: ?Status:?Acute (4) Gastroesophageal reflux disease: ?Status:?Acute ?Plan: The patient reminds me that I put retaining clips on his hyperplastic inflammatory polyps upon resecting the 3.? On medication he is symptom-free.? I propose for him an esophagogastroduodenoscopy with planned careful inspection of his Espana's esophagus and biopsy.? Inspection for any residual retaining clips or inflammatory polyps will be pursued as well. I did indeed again discussed with him the concept that we should make an attempt to get him off proton pump inhibitors.? I briefly discussed laparoscopic repair of hiatal hernia and a wrap.? He has very respectfully told me that he is very happy with his current medication program and is stable with that and does not want to pursue any more interventional of a procedure. He has had an opportunity ask and have questions answered.? I appreciate the ongoing option of assisting with his surgical care.? We will schedule procedure at his discretion with an esophagogastroduodenoscopy. Óscar Avalos M.D., F.A.C.S. I have examined the patient and the H&P has been reviewed. There are no clinical changes since date of exam. Óscar Avalos M.D., F.A.C.S.
[2022-07-22] MEDS: Lactated Ringers 1,000 ML 15 ML IV (08:45)
--- NOTE | 2022-07-22 09:30 | IMM_PTH ---
PATIENT: CLARA PENA LOC: EN U#:[id number] AGE/SX: 66/M ROOM: RE07/22/[address]: Dr. Óscar Avalos MD : 1955 BED: DIS: 07/22/2022 SPEC #: [id number] RECD: 07/22/22 13:04 STATUS: ARIS REQ #: [id number] DEANDRA: 07/22/22 09:[address]: Óscar Avalos DEPT: IMMUNOHISTOCHEMISTRY RECD BY: Shirlene Berrios ENTERED: 07/22/22 13:04 SP TYPE: IMMUNO OTHR DR: Dr. Vera Hurst MD Tissues: A - Stomach, NOS Procedures: H Pylori (initial) PHYSICIAN & INSTITUTION [place] [id number] SPECIMEN INFORMATION: Tissue Source: A - Antrum Clinical Info: Espana?s esophagus Specimen Number: [id number] CPT code: 71721 METHODOLOGY: Deparaffinized sections of prefer/formalin-fixed tissue or PAP/DQ stained slides are incubated with monoclonal/polyclonal antibodies/oligonucleotide probes. Localization is made via biotin free immunoperoxidase method. Appropriate controls are performed and reacted as expected. Results on target cell population are indicated in the following table: RESULTS: ANTIBODY / CLONE RESULT Block A H Pylori (polyclonal) negative These tests were developed and their performance characteristics determined by [facility]. They may not have been cleared or approved by the U.S. Food and Drug Administration. The FDA has determined that such clearance or approval is not necessary. The above immunohistochemical/dualISH markers are ordered and reviewed by the Pathologist. INTERPRETATION: A. Antrum, biopsy: Negative for Helicobacter pylori organisms. AM:galileo 07/24/2022
--- NOTE | 2022-07-22 09:30 | EGD_PTH ---
PATIENT: CLARA PENA LOC: EN U#:[id number] AGE/SX: 66/M ROOM: RE07/22/[address]: Dr. Óscar Avalos MD : 1955 BED: DIS: 07/22/2022 SPEC #: [id number] RECD: 07/22/22 11:39 STATUS: ARIS BUSTILLO #: [id number] DEANDRA: 07/22/22 09:[address]: Óscar Avalos DEPT: SURGICAL PATHOLOGY RECD BY: Lionel Givens ENTERED: 07/22/22 12:58 SP TYPE: EGD BIOPSY OT DR: Dr. Vera Hurst MD Tissues: A - COLON BIOPSY B - COLON BIOPSY C - POLYP D - Esophagus, NOS E - Esophagus, NOS Procedures: Special Stain Group II Surgery Specimen Level IV Alcian Blue/PAS (control) HEADER OPERATION: EGD (MAC) PRE-OP DIAGNOSIS: [place]?s esophagus TISSUE SUBMITTED: A ? Antrum for H. pylori and path, B ? Lesser curvature polyp biopsy, C ? Cardia polyp, D ? Distal esophagus biopsy, E ? Mid esophagus biopsy MICROSCOPIC DIAGNOSIS A. Gastric antrum, biopsy: Mild chronic inflammation. See comment. B. Lesser curvature gastric polyp, biopsy: Consistent with hyperplastic polyp with focal ulceration, associated chronic inflammation and granulation. C. Gastric cardia polyp, biopsy: Consistent with hyperplastic polyp with focal ulceration, associated chronic inflammation and granulation. D. Distal esophagus, biopsy: Gastroesophageal junctional mucosa with mild chronic inflammation. Focal changes of reflux. No evidence of goblet cell metaplasia. See comment. E. Mid esophagus, biopsy: No pathologic change. AM:galileo 07/23/2022 COMMENT A. The results of immunohistochemistry for Helicobacter pylori will be reported separately ([id number]). D. Alcian blue/PAS stain with matched control supports the above diagnosis. MICROSCOPIC DESCRIPTION Slides are reviewed. GROSS DESCRIPTION A - Received in fixative is one container labeled with the patient's name and designated antrum. The specimen consists of one irregular fragment of light bahena soft tissue that measures 0.5 x 0.5 x 0.1 cm. The specimen is totally submitted in one cassette. B - Received in fixative is one container labeled with the patient's name and designated lesser curvature polyp. The specimen consists of one irregular fragment of light bahena soft tissue that measures 0.8 x 0.7 x 0.2 cm. The specimen is totally submitted in one cassette. C - Received in fixative is one container labeled with the patient's name and designated cardia polyp. The specimen consists of one irregular fragment of light bahena soft tissue that measures 0.9 x 0.8 x 0.3 cm. The specimen is bisected and totally submitted in one cassette. D - Received in fixative is one container labeled with the patient's name and designated distal esophagus. The specimen consists of multiple irregular fragments of light bahena soft tissue that in aggregate measure 2.0 x 0.8 x 0.1 cm. The specimen is totally submitted in one cassette. E - Received in fixative is one container labeled with the patient's name and designated mid esophagus. The specimen consists of one irregular fragment of light bahena soft tissue that measures 0.5 x 0.5 x 0.1 cm. The specimen is totally submitted in one cassette. / AM:galileo 07/22/2022 TC:3 CPT: 79290 x5, 81620
[2022-07-22 10:05] VITALS: BP 108/52; BP 142/83; PULSE 84; RESP 16; TEMP 37.1; O2SAT 96
[2022-07-22 10:10] VITALS: BP 112/71; BP 142/83; PULSE 78; RESP 16; O2SAT 97
--- NOTE | 2022-07-22 10:10 | OP.EGD_ITS ---
Patient Name: Travis Scruggs Procedure Date: 07/22/2022 9:32 AM Date of : 1955 Age: 66 Procedure: Upper GI endoscopy Indications: Gastro-esophageal reflux disease, Follow-up of Espan[place]'s esophagus Providers: Óscar Avalos MD Referring MD: Óscar Avalos MD Medicines: See the Anesthesia note for documentation of the administered medications Complications: No immediate complications. Procedure: Pre-Anesthesia Assessment: - Prior to the procedure, a History and Physical was performed, and patient medications and allergies were reviewed. The patient's tolerance of previous anesthesia was also reviewed. The risks and benefits of the procedure and the sedation options and risks were discussed with the patient. All questions were answered, and informed consent was obtained. Prior Anticoagulants: The patient has taken no previous anticoagulant or antiplatelet agents. ASA Grade Assessment: II - A patient with mild systemic disease. After reviewing the risks and benefits, the patient was deemed in satisfactory condition to undergo the procedure. After obtaining informed consent, the endoscope was passed under direct vision. Throughout the procedure, the patient's blood pressure, pulse, and oxygen saturations were monitored continuously. The gastroscope was introduced through the mouth, and advanced to the second part of duodenum. The upper GI endoscopy was accomplished without difficulty. The patient tolerated the procedure well. Scope In: 9:43:51 AM Scope Out: 10:00:39 AM Total Procedure Duration Time 0 hours 16 minutes 48 seconds Findings: The Z-line was irregular and was found 38 cm from the incisors. Biopsies were taken with a cold forceps for histology. A medium-sized hiatal hernia was present. A few pedunculated and sessile polyps with bleeding and no stigmata of recent bleeding were found in the cardia. The polyp was removed with a hot snare. Resection and retrieval were complete. To prevent bleeding post-intervention, one hemostatic clip was successfully placed. There was no bleeding at the end of the procedure. A few sessile polyps with no bleeding and no stigmata of recent bleeding were found on the lesser curvature of the stomach. The polyp was removed with a hot snare. Resection and retrieval were complete. To prevent bleeding post-intervention, one hemostatic clip was successfully placed. There was no bleeding at the end of the procedure. Diffuse mildly erythematous mucosa without bleeding was found in the gastric antrum. Biopsies were taken with a cold forceps for histology. The examined duodenum was normal. Biopsies were taken with a cold forceps for histology. The middle third of the esophagus was normal. Biopsies were taken with a cold forceps for histology. Impression: - Z-line irregular, 38 cm from the incisors. Biopsied. Normal mid esophagus: biopsied - Medium-sized hiatal hernia. - A gastric polyp, cardia. Resected and retrieved. Clip was placed. - A gastric poly lessor curvature. Resected and retrieved. Clip was placed. - Erythematous mucosa in the antrum. Biopsied. - Normal examined duodenum. Biopsied. Recommendation: - Discharge patient to home. - Resume previous diet. - Continue present medications. - Telephone my office for pathology results in 1 week. Continue current treatment/consider surgical repair Procedure Code(s): --- Professional --- 48386, Esophagogastroduodenoscopy, flexible, transoral; with removal of tumor(s), polyp(s), or other lesion(s) by snare technique Diagnosis Code(s): --- Professional --- K22.8, Other specified diseases of esophagus K44.9, Diaphragmatic hernia without obstruction or gangrene K31.7, Polyp of stomach and duodenum K31.89, Other diseases of stomach and duodenum K22.70, [place]'s esophagus without dysplasia K21.9, Gastro-esophageal reflux disease without esophagitis CPT copyright 2017 [employer]. All rights reserved. The codes documented in this report are preliminary and upon wide area network systems administrator review may be revised to meet current compliance requirements. Óscar Avalos MD 07/22/2022 10:10:01 AM This report has been signed electronically. Number of Addenda: 0 Note Initiated On: 07/22/2022 9:32 AM
--- NOTE | 2022-07-22 10:11 | OP.CCLET_ITS ---
07/22/2022 Vera [address]st [address] [place] [address] Re : Upper GI endoscopy procedure for Travis Scruggs Dear Dr. Hurst This procedure was performed on Friday, July 22, 2022. My impressions and recommendations are as follows: Impressions : - Z-line irregular, 38 cm from the incisors. Biopsied. Normal mid esophagus: biopsied - Medium-sized hiatal hernia. - A gastric polyp, cardia. Resected and retrieved. Clip was placed. - A gastric poly lessor curvature. Resected and retrieved. Clip was placed. - Erythematous mucosa in the antrum. Biopsied. - Normal examined duodenum. Biopsied. Recommendations : - Discharge patient to home. - Resume previous diet. - Continue present medications. - Telephone my office for pathology results in 1 week. Continue current treatment/consider surgical repair My findings are described in the full procedure note, which is enclosed. If I can be of further assistance, please feel free to contact me at Doctor phone number(s): Work: . Sincerely, Óscar Avalos MD 07/22/2022 10:10:01 AM This report has been signed electronically.
[2022-07-22 10:15] VITALS: BP 122/77; BP 142/83; PULSE 77; RESP 16; O2SAT 94
[2022-07-22 10:20] VITALS: BP 130/72; BP 142/83; PULSE 82; RESP 16; TEMP 37.1; O2SAT 95
[2022-07-22 10:29] VITALS: BP 142/83
== END 2022-07-22 10:38 | disposition home or self-care (01) ==
LOC: EN 08:21 → AC 08:23
PROVIDERS: PCP Family Medicine; Referring Provider Surgery; Visit Provider Surgery
PROC: 0DJ08ZZ Inspection of Upper Intestinal Tract, Via Natural or Artificial Opening Endoscopic (ICD-10-PCS; CPT 43235; principal; 2022-07-22 09:25)
DX: K44.9 Diaphragmatic hernia without obstruction or gangrene (principal); K31.7 Polyp of stomach and duodenum; K21.00 Gastro-esophageal reflux disease with esophagitis, without bleeding; I10 Essential (primary) hypertension; E78.00 Pure hypercholesterolemia, unspecified; K31.89 Other diseases of stomach and duodenum; Z79.899 Other long term (current) drug therapy
CPT/HCPCS: 43251; 88305; 88313; 88342; J7120; J2405

== ENCOUNTER → 2022-12-30 | Outpatient (CLI) | payer MEDICARE, SELFPAY ==
[2022-12-30 13:16] LABS: Microalbumin,Random Urine 9.4 mg/L (NO RANGE EST.); Microalbumin:Creatinine Ratio 11.1 mg/g CRE (<30 mg/g CRE)
[2022-12-30 13:30] LABS: AST(SGOT) 38 U/L (15-37); Alanine Aminotransfer ALT/SGPT 59 U/L (16-61); Anion Gap 7 (5-15); BUN 9 mg/dL (7-18); BUN/Creat Ratio 8.5 RATIO (10-20); Calcium,Total 8.7 mg/dL (8.5-10.1); Chloride 102 mmol/L (98-107); Cholesterol 139 mg/dL (200); Creatinine, Serum 1.06 mg/dL (0.70-1.30); EST Glomerular Filtration Rate 75 mL/min (>60); Est Glom Filt Rate - Afr Amer 90 mL/min (>60); Glucose 120 mg/dL (74-106); High Density Lipoprotein 66 mg/dL; PSA,Total - Annual Screen 3.16 ng/mL (0.00-4.00); Potassium 4.2 mmol/L (3.5-5.1); Sodium Level 134 mmol/L (136-145); Triglycerides 98 mg/dL; Very Low Density Lipoprotein 20 mg/dL (5-40)
== END | disposition home or self-care (01) ==
PROVIDERS: PCP Family Medicine; Visit Provider Family Medicine
DX: Z12.5 Encounter for screening for malignant neoplasm of prostate (principal); E78.00 Pure hypercholesterolemia, unspecified; I10 Essential (primary) hypertension
CPT/HCPCS: 36415; 80048; 80061; 82043; 82570; 84153; 84450; 84460; G0103

== ENCOUNTER → 2024-01-18 | Outpatient (CLI) | payer MEDICARE, SELFPAY ==
[2024-01-18 12:42] LABS: Protein, Urine (Random) 29.3 mg/dL (<11.9); Protein:Creat Ratio 133 mg/g CRE (0-200)
[2024-01-18 13:12] LABS: AST(SGOT) 45 U/L (15-37); Alanine Aminotransfer ALT/SGPT 51 U/L (16-61); Anion Gap 11 (5-15); BUN 10 mg/dL (7-18); BUN/Creat Ratio 8.6 RATIO (10-20); Calcium,Total 8.9 mg/dL (8.5-10.1); Chloride 104 mmol/L (98-107); Cholesterol 163 mg/dL (200); Creatinine, Serum 1.16 mg/dL (0.70-1.30); EST Glomerular Filtration Rate 67 mL/min (>60); Est Glom Filt Rate - Afr Amer 81 mL/min (>60); Glucose 126 mg/dL (74-106); High Density Lipoprotein 67 mg/dL; PSA,Total - Annual Screen 1.45 ng/mL (0.00-4.00); Potassium 4.1 mmol/L (3.5-5.1); Sodium Level 136 mmol/L (136-145); Triglycerides 174 mg/dL; Very Low Density Lipoprotein 35 mg/dL (5-40)
== END | disposition home or self-care (01) ==
LOC: MFPLAB 09:58
PROVIDERS: PCP Family Medicine; Visit Provider Family Medicine
DX: I10 Essential (primary) hypertension (principal); E78.00 Pure hypercholesterolemia, unspecified; Z12.5 Encounter for screening for malignant neoplasm of prostate
CPT/HCPCS: 36415; 80048; 80061; 82570; 84153; 84156; 84443; 84450; 84460; G0103

== ENCOUNTER → 2025-01-19 | Outpatient (CLI) | payer MEDICARE, SELFPAY ==
[2025-01-19 10:38] LABS: Hematocrit 41.3 % (40-54); Hemoglobin 14.8 g/dL (13.0-16.5); Mean Corp Hgb Conc 35.8 g/dL (32-36); Mean Corpuscular Volume 89.4 fL (80-94); Mean Platelet Vol. 9.6 fl (6.2-12.0); Platelet Count 304 K/mm3 (150-450); RBC Distribution Width CV 12.4 % (11.6-14.6); RBC Distribution Width SD 40.9 fl (35.1-43.9); Red Blood Count 4.62 M/mm3 (4.6-6.2); White Blood Count 5.6 K/mm3 (4.4-11.0)
--- OUTSIDE RECORDS SUMMARY | 2025-01-19 10:58 | XMS RPT_ITS | CCD ---
Author Organization [facility] Care Team Providers Care Assistant Chief Train Dispatcher Name Role Phone PROVIDER, UNKNOWN Admitting Unavailable BOOM LOMELI Referring Unavailable RACHEL SAWYER Attending Unavailable PROVIDER, UNKNOWN Admitting Unavailable PROVIDER, UNKNOWN Attending Unavailable PROVIDER, UNKNOWN Admitting Unavailable PROVIDER, UNKNOWN Attending Unavailable DEPT, EMERGENCY Referring Unavailable Dr. Vera Hurst Primary Care Provider Dr. Vera Hurst Referring Provider [phone] Dr. Óscar Avalos Attending Provider Dr. Óscar Avalos Referring Provider Dr. Óscar Avalos Other Provider Vera Hurst Attending Unavailable Vera Hurst Primary Care Unavailable Allergies Allergy Classification Reported Allergen(s) Allergy Type Date of Onset Reaction(s) Facility (2 sources) Environmental Allergies: Uncoded; Translations: [Environmental Allergies: Uncoded] Allergy to substance 3 Other [facility] Medications Current Medications Medication Drug Class(es) Dates Sig (Normalized) Sig (Original) amLODIPine 10 mg oral tablet (1 source) Dihydropyridine Calcium Channel Mateus Start: 07-14-2019 take 10 mg by mouth twice daily Amlodipine Active 10 MG PO TWICE A DAY July 14, 2019 12:00am atorvastatin 20 mg oral tablet (1 source) HMG-CoA Reductase Inhibitor Start: 07-14-2019 take 20 mg by mouth at bedtime Atorvastatin Active 20 MG PO AT BEDTIME July 14, 2019 12:00am lansoprazole 30 mg delayed release oral capsule (1 source) Proton Pump Inhibitor Start: 07-14-2019 take 30 mg by mouth once daily Lansoprazole Active 30 MG PO DAILY July 14, 2019 12:00am lisinopril 20 mg oral tablet (1 source) Angiotensin Converting Enzyme Inhibitor Start: 07-16-2022 take 20 mg by mouth once daily Lisinopril Active 20 MG PO DAILY July 16, 2022 12:00am Problems Problem Classification Problem Date Documented Date Episodic/Chronic Abdominal hernia (2 sources) Umbilical hernia; Translations: [Umbilical hernia without obstruction or gangrene] 07-03-2022 Episodic Esophageal disorders (5 sources) Espana's esophagus; Translations: [Espana's esophagus without dysplasia] 08-03-2019 Chronic Essential hypertension (1 source) Essential (primary) hypertension; Translations: [Essential (primary) hypertension] Onset: 4 Chronic Gastritis and duodenitis (1 source) Gastritis; Translations: [Gastritis, unspecified, without bleeding] 08-03-2019 Episodic Open wounds of extremities (1 source) Traumatic amputation of thumb; Translations: [Complete traumatic metacarpophalangeal amputation of unspecified thumb, initial encounter] 10-27-2019 Chronic Other and unspecified benign neoplasm (1 source) Gastric polyp; Translations: [Polyp of stomach and duodenum] 08-03-2019 Episodic Other and unspecified benign neoplasm (1 source) Polyp of stomach and duodenum; Translations: [Benign neoplasm of stomach] 07-03-2022 Episodic Other gastrointestinal disorders (1 source) Stool DNA-based colorectal cancer screening positive; Translations: [Other fecal abnormalities] 07-14-2019 Episodic Results Test Name Value Interpretation Reference Range Facility AST(SGOT)on 01-18-2024 AST [Catalytic activity/Vol] 45 U/L High 15-37 [facility] Comment on above: Performed By: #### L 501.4100, L501.4405, L500.4100, L500.2500, L501.0900, L501.9520, L501.9910 #### [facility] [address] [place], [address] Alanine Aminotransferas (SGP T)on 01-18-2024 ALT [Catalytic activity/Vol] 51 U/L Normal 16-61 [facility] Comment on above: Performed By: #### L 501.4100, L501.4405, L500.4100, L500.2500, L501.0900, L501.9520, L501.9910 #### [facility] [address] [place], [address] Basic Metabolic Profile (BMP )on 01-18-2024 BUN/CRE 8.6 RATIO Low 10-20 [facility] Comment on above: Performed By: #### L 501.4100, L501.4405, L500.4100, L500.2500, L501.0900, L501.9520, L501.9910 #### [facility] [address] [place], [address] CA,Total 8.9 mg/dL Normal 8.5-10.1 [facility] Comment on above: Performed By: #### L 501.4100, L501.4405, L500.4100, L500.2500, L501.0900, L501.9520, L501.9910 #### [facility] [address] [place], [address] Chloride [Moles/Vol] 104 mmol/L Normal 98-107 [facility] Comment on above: Performed By: #### L 501.4100, L501.4405, L500.4100, L500.2500, L501.0900, L501.9520, L501.9910 #### [facility] [address] [place], [address] CO2 [Moles/Vol] 21.0 mmol/L Normal 21.0-32.0 [facility] Comment on above: Performed By: #### L 501.4100, L501.4405, L500.4100, L500.2500, L501.0900, L501.9520, L501.9910 #### [facility] [address] [place], [address] Creatinine [Mass/Vol] 1.16 mg/dL Normal 0.70-1.30 [facility] Comment on above: Result Comment: The validity of the calculated GFR GFRAA in patients over 70 years has not been determined. Clinical correlation is essential. Performed By: #### L 501.4100, L501.4405, L500.4100, L500.2500, L501.0900, L501.9520, L501.9910 #### [facility] [address] [place], [address] EST GFR - AA 81 mL/min Normal >60 [facility] Comment on above: Result Comment: Afri can Nicaraguan GFR Calc Performed By: #### L 501.4100, L501.4405, L500.4100, L500.2500, L501.0900, L501.9520, L501.9910 #### [facility] [address] [place], [address] GAP 11 Normal 5-15 [facility] Comment on above: Performed By: #### L 501.4100, L501.4405, L500.4100, L500.2500, L501.0900, L501.9520, L501.9910 #### [facility] [address] [place], [address] GFR/1.73 sq M.predicted among non-blacks MDRD (S/P/Bld) [Vol rate/Area] 67 mL/min/{1.73_m2} Normal >60 [facility] Comment on above: Result Comment: Non- GFR Calc Performed By: #### L 501.4100, L501.4405, L500.4100, L500.2500, L501.0900, L501.9520, L501.9910 #### [facility] [address] [place], [address] Glucose [Mass/Vol] 126 mg/dL High 74-106 [facility] Comment on above: Result Comment: Fast ing Glucose result greater than or equal to 126 mg/dL suggests DIABETES MELLITUS per A.D.A. criteria. Performed By: #### L 501.4100, L501.4405, L500.4100, L500.2500, L501.0900, L501.9520, L501.9910 #### [facility] [address] [place], [address] Potassium [Moles/Vol] 4.1 mmol/L Normal 3.5-5.1 [facility] Comment on above: Performed By: #### L 501.4100, L501.4405, L500.4100, L500.2500, L501.0900, L501.9520, L501.9910 #### [facility] [address] [place], [address] Sodium [Moles/Vol] 136 mmol/L Normal 136-145 [facility] Comment on above: Performed By: #### L 501.4100, L501.4405, L500.4100, L500.2500, L501.0900, L501.9520, L501.9910 #### [facility] [address] [place], [address] Urea nitrogen [Mass/Vol] 10 mg/dL Normal 7-18 [facility] Comment on above: Performed By: #### L 501.4100, L501.4405, L500.4100, L500.2500, L501.0900, L501.9520, L501.9910 #### [facility] [address] [place], [address] Lipid Profileon 01-18-2024 Cholesterol [Mass/Vol] 163 mg/dL Normal 200 [facility] Comment on above: Result Comment: <200 mg/dL Desirable 200-240 mg/dL Borderline >240 mg/dL High Risk Performed By: #### L 501.4100, L501.4405, L500.4100, L500.2500, L501.0900, L501.9520, L501.9910 #### [facility] [address] [place], [address] Cholesterol in HDL [Mass/Vol] 67 mg/dL Normal [facility] Comment on above: Result Comment: The drugs N-Acetylcysteine and Metamizole may falsely depress this assay. Reference Range HDL <40 mg/dL Low HDL Cholesterol HDL >or= 60 mg/dL High HDL Cholesterol Performed By: #### L 501.4100, L501.4405, L500.4100, L500.2500, L501.0900, L501.9520, L501.9910 #### [facility] [address] [place], [address] Cholesterol in LDL [Mass/Vol] 61 mg/dL Normal 0-130 [facility] Comment on above: Performed By: #### L 501.4100, L501.4405, L500.4100, L500.2500, L501.0900, L501.9520, L501.9910 #### [facility] [address] [place], [place], [id number] (6[address] Cholesterol in VLDL [Mass/Vol] 35 mg/dL Normal 5-40 [facility] Comment on above: Performed By: #### L 501.4100, L501.4405, L500.4100, L500.2500, L501.0900, L501.9520, L501.9910 #### [facility] [address] [place], [place], [id number] ([address] Triglyceride [Mass/Vol] 174 mg/dL Normal [facility] Comment on above: Result Comment: The drugs N-Acetylcysteine and Metamizole may falsely depress this assay. Serum Triglycerides Reference Interval Normal <150 mg/dL Borderline high 150 - 199 mg/dL High 200 - 499 mg/dL Very High > or = 500 mg/dL Performed By: #### L 501.4100, L501.4405, L500.4100, L500.2500, L501.0900, L501.9520, L501.9910 #### [facility] [address] [place], [place], [id number] (893) PSA,Total - Annual Screenon 01-18-2024 PSA,TOT SCREEN 1.45 ng/mL Normal 0.00-4.00 [facility] Comment on above: Result Comment: This test was performed using the TPSA assay method for the [employer] chemistry system. Values obtained with different assay methods cannot be used interchangably. When changing PSA assays in the course of monitoring a patient, additional sequential testing should be carried out to confirm baseline values. Performed By: #### L 501.4100, L501.4405, L500.4100, L500.2500, L501.0900, L501.9520, L501.9910 #### [facility] [address] [place], [address] Protein+Creatinine Ratio,Uri neon 01-18-2024 PROT:CRE RATIO 133 mg/g CRE Normal 0-200 [facility] Comment on above: Performed By: #### L 501.4100, L501.4405, L500.4100, L500.2500, L501.0900, L501.9520, L501.9910 #### [facility] [address] [place], [address] Protein (U) [Mass/Vol] 29.3 mg/dL High <11.9 [facility] Comment on above: Performed By: #### L 501.4100, L501.4405, L500.4100, L500.2500, L501.0900, L501.9520, L501.9910 #### [facility] [address] [place], [address] UR CREAT 220.00 mg/dL Normal NO RANGE EST. [facility] Comment on above: Performed By: #### L 501.4100, L501.4405, L500.4100, L500.2500, L501.0900, L501.9520, L501.9910 #### [facility] [address] [place], [address] Thyroid Stim Hormone (TSH)on 11-11-2024 TSH 1.830 uIU/mL Normal 0.358-3.740 [facility] Comment on above: Performed By: #### L 501.4100, L501.4405, L500.4100, L500.2500, L501.0900, L501.9520, L501.9910 #### [facility] [address] [place], [place], [address] XR HAND LEFTon 10-27-2019 XR HAND LEFT EXAMINATION: XR HAND LEFT 3 VIEWSED CLINICAL HISTORY: l thumb amputation COMPARISON: None FINDINGS: Traumatic amputation of the first interphalangeal joint. A few ossific fragments adjacent to the proximal aspect of the first distal phalanx which. Represent sesamoid bones. Few ossific fragments adjacent to the distal first proximal phalanx concerning for fracture fragments. Degenerative changes most pronounced at the interphalangeal joints. IMPRESSION: Traumatic amputation of the first interphalangeal joint. A few ossific fragments adjacent to the proximal aspect of the first distal phalanx which appear to represent sesamoid bones. Few ossific fragments adjacent to the distal first proximal phalanx concerning for fracture fragments. MACRO: None Normal [facility] Vital Signs Date Time Vital Sign Value Performing Clinician Faci lity 07-22-2022 10:20-0400 Body temperature 98.7 [degF] Dr. Vera Hurst Work Phone: [facility] 07-22-2022 10:20-0400 Diastolic blood pressure 72 mm[Hg] Dr. Vera Hurst Work Phone: [facility] 07-22-2022 10:20-0400 Heart rate 82 /min Dr. Vera Hurst Work Phone: [facility] 07-22-2022 10:20-0400 Respiratory rate 16 /min Dr. Vera Hurst Work Phone: [facility] 07-22-2022 10:20-0400 SaO2% (BldA) [Mass fraction] 95 % Dr. Vera Hurst Work Phone: [facility] 07-22-2022 10:20-0400 Systolic blood pressure 130 mm[Hg] Dr. Vera Hurst Work Phone: [facility] 07-22-2022 08:42-0400 Body height 177.[address] Vera Hurst Work Phone: [facility] 07-22-2022 08:42-0400 Body mass index (BMI) [Ratio] 22.7 kg/m2 Dr. Vera Hurst Work Phone: [facility] 07-22-2022 08:42-0400 Body weight 71.[address] Vera Hurst Work Phone: [facility] 07-03-2022 08:03-0400 Body mass index (BMI) [Ratio] 23.1 kg/m2 Dr. Vera Hurst Work Phone: [facility] 07-03-2022 08:03-0400 Body temperature 97.7 [degF] Dr. Vera Hurst Work Phone: [facility] 07-03-2022 08:03-0400 Body weight 73.[address] Vera Hurst Work Phone: [facility] 07-03-2022 08:03-0400 Diastolic blood pressure 82 mm[Hg] Dr. Vera Hurst Work Phone: [facility] 07-03-2022 08:03-0400 Heart rate 94 /min Dr. Vera Hurst Work Phone: [facility] 07-03-2022 08:03-0400 Respiratory rate 17 /min Dr. Vera Hurst Work Phone: [facility] 07-03-2022 08:03-0400 SaO2% (BldA) [Mass fraction] 96 % Dr. Vera Hurst Work Phone: [facility] 07-03-2022 08:03-0400 Systolic blood pressure 135 mm[Hg] Dr. Vera Hurst Work Phone: [facility] Encounters Encounter Date Encounter Type Care Provider Facility Start: 01-18-2024 End: 01-18-2024 ambulatory Vera Hurst Facility:[facility] Start: 07-22-2022 Non-patient / Non-visit Dr. Lawrence Hrust Work Phone: [facility] Start: 07-22-2022 End: 07-22-2022 Admission to same day surgery center Dr. Vera Hurst Work Phone: [facility] Start: 07-22-2022 End: 07-22-[address] Vera Hurst Work Phone: [facility] Work Phone: Start: 07-03-2022 End: 07-03-[address] Vera Hurst Work Phone: [facility] Start: 11-03-2019 Patient encounter procedure UNKNOWN PROVIDER Facility:[facility] Start: 10-27-2019 Patient encounter procedure UNKNOWN PROVIDER Facility:[facility] Start: 10-27-2019 End: 10-27-2019 Emergency department patient visit UNKNOWN PROVIDER Facility:[facility] Procedures Date Procedure Procedure Detail Performing Clinician Start: 07-22-[address] Vera Hurst Work Phone: Start: 10-27-2019 DISCHARGE PATIENT UNKNO WN PROVIDER Start: 10-27-2019 Radex hand minimum 3 views UNKNOWN PROVIDER Plan of Treatment Date Care Activity Detail Author Start: 07-22-2022 Patient discharge [facility] Patient referral [facility] Work Phone: Immunizations Immunization Date Immunization Notes Care Provider Fa cility 06-14-2020 Covid (Pfizer) Dr. Vera salmon Work Phone: [facility] 05-24-2020 Covid (Pfizer) Dr. Vera salmon Work Phone: [facility] Payers Date Payer Category Payer Private Health Insurance [id number] 2024 Self-pay [id number] 2013 Unknown [facility] [id number] 2013 Unknown [id number] 1955 Unknown [id number] 1957 Unknown [id number] 1957 Unknown [id number] Unknown [id number] Social History Date Type Detail Facility Start: 07-16-2022 Tobacco smoking stat [facility] Unknown if ever smoked [facility] Start: 07-21-2019 Non-smoker [facility] Start: 1955 Sex Assigned At Male [facility] Goals Date Patient Goal Desired Activity /State Mental Status Date Assessment Result Facility 07-22-2022 Cognitive function Voice/Name [facility] Work Phone: Procedure note 07-22-2022 Note Date & Type Note Facility 07-22-2022 Procedure note [facility] Procedure note 07-22-2022 Note Date & Type Note Facility 07-22-2022 Procedure note [facility] Evaluation note Note Date & Type Note Facility Evaluation note Diagnosis Onset Date Espana's esophagus determined by biopsy acute Gastroesophageal reflux disease acute Hyperplastic polyps of stomach acute Umbilical hernia without obs truction or gangrene acute [facility] Work Phone: History and physical note Note Date & Type Note Facility History and physical note Note Date/Time July 22, 2022 8:44am [facility] Medical Records Department [address] [place] [address] History & Physical Exam 07/22/22 0844 MR#: [id number] Acct: [id number] Name: CLARA PENA Rep #:[id number] : 1955 66 From: Óscar Avalos MD PCP: Dr. Vera Hurst MD Status:[facility] Location: [facility]16-1 History and Physical Date of Admission: 07/22/22 Visit Reasons:?RECALL LETTER- EGD FOR BARRETTS Chief Complaint: recall letter-egd for barretts Is patient in pain?: No Allergies Environmental Allergies: Uncoded [seasonal] Allergy (Verified 07/03/22 08:04) Other Medications amlodipine 10 mg tablet 10 mg PO BID 07/14/19 [History Confirmed 07/03/22] atorvastatin 20 mg tablet 20 mg PO QHS 07/14/19 [History Confirmed 07/03/22] lansoprazole 30 mg capsule,delayed release 30 mg PO DAILY 07/14/19 [History Confirmed 07/03/22] famotidine 20 mg tablet (Pepcid) 20 mg PO BID #90 tabs 08/03/19 [Rx Confirmed 07/03/22] PFSH Medical History?(Updated 07/03/22 @ 08:[address] Óscar Avalos MD) Espana's esophagus determined by biopsy Gastritis Gastroesophageal reflux disease GERD (gastroesophageal reflux disease) Hiatal hernia with GERD HTN (hypertension) Hyperlipidemia Hyperplastic polyps of stomach Surgical History? History of arthroscopic knee surgery History of esophagogastroduodenoscopy (EGD) History of mandibular surgery Family History? Grandfather Myocardial infarction Heart diseaseGrandmother Cancer ?? ? lung Social History? Smoking Status:? Never smoker HPI HPI HPI: 66-year-old gentleman.? On July 25, 2019 I performed a esophagogastroduodenoscopyand colonoscopy for him.? The esophagogastroduodenoscopy demonstrated a medium size hiatal hernia with 2 polyps at the EG junction and additional polyp of the lesser curvatures.? All of these were hyperplastic inflammatory polyps.? There appeared to be esophageal mucosa 1 cm or less which was biopsied confirming Espana's esophagus with moderate chronic inflammation but no dysplasia.? Of additional note is that a tortuous colon was identified with hemorrhoids.? I didsee him postoperatively discussing his long-term use at least 10 years of using a PPI I recommended home esophageal manometry with consideration of a surgical reflux procedure.? An attempt was made to convert him from proton pump inhibitorto famotidine.? Recommendations for follow-up of his Espana's esophagus with repeat EGD at 3 years. She did indeed try the famotidine but after a week it completely failed and he became quite symptomatic.? Therefore he returned to utilizing lansoprazole 30 mgdaily.? That is completely effective at stopping his symptoms.? He does not haveto use additional acid suppressing medication. He does not have his head of bed raised we did discuss that.? He is however of ideal body weight.? He does not use tobacco products. ROS General General: No weight change, appetite, fatigue, colon cancer, breast cancer or weakness HEENT HEENT: No difficulty swallowing, eye injury, eye surgery, swollen glands or hoarseness Endo Endocrine: No thyroid disease, diabetes mellitus, thyroid cancer, Hair loss, heat intolerance or cold intolerance Skin Skin: No rash or changing moles Musc Musculoskeletal: Yes arthritis; No back problems, rheumatoid arthritis, gout or joint pain Cardio Cardiovascular: Yes high blood pressure; No murmur, pacemaker, heart disease, atrial fibrillation, heart attack, heart stent, palpitations, shortness of breat with exertion or chest pain Psych Psychiatric: No depression, anxiety or hearing voices Resp Respiratory: No shortness of breath, No sleep apnea, No cough, No COPD, No asthma, No emphysema and No wheezing Gastro Gastrointestinal: No abdominal pain, No nausea or vomiting, No diarrhea, No constipation, No blood in stool, No acid reflux, No hemorrhoids, No ulcers, No gallbladder problem and No black,tarry stools Cesar Hematologic: No blood thinners, No blood disorders, No bleeding, No anemia and No blood clots Neuro Neurologic: No system reviewed and no additional complaints, except as documented, No as per HPI, No abnormal gait, No abnormal hearing, No abnormal movements, No abnormal speech, No behavioral changes, No burning sensations, No confusion, No convulsions, No disequilibrium, No dizziness, No localized weakness, No frequent falls, No headache(s), No lack of coordination, No loss ofvision, No memory loss, Yes numbness, No other visual disturbances, No radicularpain, No restless legs, No sensory deficit, No syncope, No tingling, No tremor(s), No weakness and No other Exam Const General: cooperative, healthy appearing, comfortable and no acute distress HENMT Head: normal to inspection Eyes General: appearance normal, both eyes and all related structures Neck Neck: normal visual inspection Chest Chest palpation & inspection: normal inspection of the chest Resp Effort & Inspection: normal respiratory effort Auscultation: clear to auscultation bilaterally Cardio Rate: regular rate Rhythm: regular rhythm GI Inspection: normal to inspection Palpation: soft and no hepatosplenomegaly Other: Small reducible nontender umbilical hernia Skin General: no rashes or lesions noted Neuro General: patient alert, patient awake and patient oriented x3 Extrem General: no calf tenderness Psych Appearance: grossly normal Assessment and Plan Assessment and Plan (1) Espana's esophagus determined by biopsy: ?Status:?Acute ?Plan: Copy: Dr Vera Avalos M.D., F.A.C.S. (2) Umbilical hernia without obstruction or gangrene: ?Status:?Acute (3) Hyperplastic polyps of stomach: ?Status:?Acute (4) Gastroesophageal reflux disease: ?Status:?Acute ?Plan: The patient reminds me that I put retaining clips on his hyperplastic inflammatory polyps upon resecting the 3.? On medication he is symptom-free.? I propose for him an esophagogastroduodenoscopy with planned careful inspection ofhis Espana's esophagus and biopsy.? Inspection for any residual retaining clipsor inflammatory polyps will be pursued as well. I did indeed again discussed with him the concept that we should make an attemptto get him off proton pump inhibitors.? I briefly discussed laparoscopic repair of hiatal hernia and a wrap.? He has very respectfully told me that he is very happy with his current medication program and is stable with that and does not want to pursue any more interventional of a procedure. He has had an opportunity ask and have questions answered.? I appreciate the ongoing option of assisting with his surgical care.? We will schedule procedure at his discretion with an esophagogastroduodenoscopy. Óscar Avalos M.D., F.A.C.S. I have examined the patient and the H&P has been reviewed. There are no clinicalchanges since date of exam. Óscar Avalos M.D., F.A.C.S. 07/22/22 0844 <Electronically signed by Óscar Avalos MD> Cosigner Signature (if applicable): CC: Dr. Vera Hurst MD; Dr. Óscar Avalos MD~ Signed [facility] Work Phone: Summary Purpose Family History No Family History Records Found Relationship Condition Age at Onset Recorded Date/T kim grandfather Myocardial infarction Unknown Cardiac disease Unknown grandmother Malignant neoplasm Unknown Advance Directives No Advanced Directives Records Found Advance Directive Response Recorded Date/ Time Name of Medical Power of [employer] RADHA PENA July 16, 2022 11:12am Living Will Yes July 16, 2022 1 1:12am Power of [employer] Yes July 16, 2022 11:12am Chief Complaint and Reason for Visit Chief Complaint RECALL LETTER- EGD F OR [facility]RETTS Reason for Visit [place]'s esophagus determined by biopsy Gastroesophageal reflux disease Hyperplastic polyps of stomach Umbilical hernia without obstruction or gangrene Additional Source Comments (unrecognized sect ion and content) No Status Records FoundNo Status Records Found INFORMATION SOURCE (unrecogn ized section and content) DATE CREATED AUTHOR 11/04/2019 [facility] DATE CREATED AUTHOR AUTHOR'S ORGANIZ ATION 02/17/2024 [facility] Care Teams (unrecognized sec tion and content) Team Status: Active Member Role Status Dates Dr. Vera Hurst MD Family Provider Active Dr. Vera Hurst MD Primary Care Provider Active Team Status: Inactive Member Role Status Dates Dr. Vera Hurst MD [facility], [facility] Dr. Óscar Avalos MD Attending Provider Active Team Status: Active Member Role Status Dates Dr. Vera Hurst MD Primary Care Provider Active Dr. Óscar Avalos MD Attending Provid er, Referring Provider, Other Provider Active Team Status: Inactive Member Role Status Dates Dr. Vera Hurst MD Primary Care Provider Active Dr. Óscar Avalos MD Attending Provider, Referring Provider Active FOR RECORDS PERTAINING TO PATIENTS WHO ARE OR HAVE BEEN ENROLLED IN A CHEMICAL DEPENDENCY/SUBSTANCEABUSE PROGRAM, SOME INFORMATION MAY BE OMITTED. This clinical summary was aggregated from multiple sources. Caution should be exercised in using it in the provision of clinical care. This summary normalizes information from multiple sources, and as a consequence, information in this document may materially change the coding, format and clinical context of patient data. In addition, data may be omitted in some cases. CLINICAL DECISIONS SHOULD BE BASED ON THE PRIMARY CLINICAL RECORDS. [facility] provides no warranty or guarantee of the accuracy or completeness of information in this document.
[2025-01-19 11:03] LABS: Creatinine, Urine (random) 91.20 mg/dL (39.00-259.00); Microalbumin,Random Urine 26.0 mg/L (<20 mg/L)
[2025-01-19 13:06] LABS: AST(SGOT) 40 U/L (<=37); Alanine Aminotransfer ALT/SGPT 38 U/L (<=46); Albumin, Serum 4.5 g/dL (3.4-4.8); Alkaline Phosphatase 60 U/L (40-129); Anion Gap 14 (5-15); BUN 10 mg/dL (4-19); BUN/Creat Ratio 9.7 RATIO (10-20); Calcium,Total 9.0 mg/dL (7.6-11.0); Carbon Dioxide 22.0 mmol/L (21.0-32.0); Chloride 100 mmol/L (98-108); Cholesterol 159 mg/dL (<=200); Globulin 3.6 g/dL (2.2-4.2); Glucose 102 mg/dL (70-99); Low Density Lipoprotein Calc. 67 mg/dL; PSA,Total - Annual Screen 1.17 ng/mL (0.02-4.00); Potassium 4.5 mmol/L (3.3-5.1); Triglycerides 212 mg/dL; Very Low Density Lipoprotein 42 mg/dL (5-40); cholesterol:hdl ratio screen 2.75
== END | disposition home or self-care (01) ==
LOC: MFPLAB 09:31
PROVIDERS: PCP Family Medicine; Visit Provider Family Medicine
DX: Z12.5 Encounter for screening for malignant neoplasm of prostate (principal); I10 Essential (primary) hypertension
CPT/HCPCS: 36415; 80053; 80061; 82043; 82570; 84153; 85027; G0103